=== PATIENT | male | born 1955 | race Caucasian/White ===

== ENCOUNTER 2017-12-28 18:44 | Emergency (ER) | payer OTHER ==
[2017-12-28] MEDS ORDERED: Lidocaine 1% 20 ML MDV INJECT ONE (20:01)
[2017-12-28] MEDS: Lidocaine 1% 50 ML MDV ONE ×2 (20:21)
--- NOTE | 2017-12-28 20:23 | EDM.PDOC ---
ED HPI GENERAL MEDICAL PROBLEM - General Chief Complaint: Skin Complaint Stated Complaint: INFECTED INGROWN HAIR WAISTLINE POSS CELLULITIS Time Seen by Provider: 12/28/17 18:58 Source of Information: Reports: Patient History Limitations: Reports: No Limitations - History of Present Illness INITIAL COMMENTS - FREE TEXT/NARRATIVE: This is a 62-year-old male. He is developed an ingrown hair in the right pubis area that is turning into a cellulitis and a very hard indurated area right in the middle of the ingrown hair. He believes he might have an abscess and certainly has cellulitis. He denies any fever or chills. He denies any other acute symptoms. Abdomen Pain Score (Numeric/FACES): 5 - Related Data Allergies Allergy/AdvReac Type Severity Reaction Status Date / Time ciprofloxacin Allergy Hives Verified 12/28/17 18:59 Home Meds: Home Meds Cephalexin [Keflex] 500 mg PO TID #21 capsule 12/28/17 [Rx] Lisinopril [Zestril] 20 mg PO DAILY 12/28/17 [History] Omeprazole Magnesium [Prilosec Otc] 20 mg PO DAILY 12/28/17 [History] Past Medical History Cardiovascular History: Reports: Hypertension Respiratory History: Reports: Pneumothorax, Other (See Below) Other Respiratory History: Chest tube - Past Surgical History GI Surgical History: Reports: Hernia, Abdominal, Hernia, Inguinal Social & Family History - Tobacco Use Smoking Status *Q: Never Smoker - Alcohol Use Days Per Week of Alcohol Use: 2 Number of Drinks Per Day: 2 Total Drinks Per Week: 4 - Recreational Drug Use Recreational Drug Use: No ED ROS GENERAL - Review of Systems Review Of Systems: See Below Constitutional: Denies: Fever, Chills HEENT: Reports: No Symptoms Respiratory: Reports: No Symptoms Cardiovascular: Reports: No Symptoms Endocrine: Reports: No Symptoms GI/Abdominal: Reports: No Symptoms : Reports: No Symptoms Musculoskeletal: Reports: No Symptoms Skin: Reports: Other (As per history of present illness) Neurological: Reports: No Symptoms Psychiatric: Reports: No Symptoms Hematologic/Lymphatic: Reports: No Symptoms ED EXAM, SKIN/RASH Exam: See Below Exam Limited By: No Limitations General Appearance: Alert, WD/WN, No Apparent Distress Eye Exam: Bilateral Eye: Normal Inspection Ears: Normal External Exam Nose: Normal Inspection Throat/Mouth: Normal Inspection, Normal Lips, Normal Voice, No Airway Compromise Head: Normocephalic Neck: Supple Respiratory/Chest: No Respiratory Distress Back Exam: Full Range of Motion Extremities: Normal Range of Motion Neurological: Alert, Oriented Psychiatric: Normal Affect, Normal Mood Skin: Warm, Dry, Other (In the right pubis area there is a 3 x 3 cm induration over what appears to be an ingrown hair with a cellulitis about the size of his hand over the pubic area region, I cannot feel any fluctuance when I push on the indurated area, there is no other acute findings.) ED SKIN PROCEDURES - I&D Site: Right pubis Skin Prep: Providone-Iodine (Betadine) Local Anesthesia: Lidocaine: 1% Plain Local Anesthetic Volume: 4cc Area Incised With: 11 Blade Drainage: Bloody, Moderate Amount Probed to Break Up Loculations: Yes Packed With: 1/2 in. Iodoform Sterile Dressinx4(s) Complications: No Progress/Comments: When I made the incision I used a Q-tip to probe the area and I did find a very small pocket that I completely broke up and allowed it to bleed and then I packed it with 1/2 inch iodoform gauze. The patient tolerated the procedure well. Course - Vital Signs Last Recorded V/S: Last Vital Signs Temp 97.4 F 12/28/17 18:59 Pulse 69 12/28/17 18:59 Resp 18 12/28/17 18:59 BP Pulse Ox 96 12/28/17 18:59 - Orders/Labs/Meds Orders: Active Orders 24 hr Category Date Time Status Extremity Non Vascular LTD [US] Stat Exams 12/28/17 19:12 Taken cefTRIAXone 1 GM with Lidocaine 1% 2.1 ML IM Med 12/28/17 20:30 Ordered cefTRIAXone [Rocephin] 1 gm Lidocaine 1% [Xylocaine 1%] 2.1 ml IM Q24H Meds: Medications Discontinued Medications Generic Name Dose Route Start Last Admin Trade Name Liam PRN Reason Stop Dose Admin Lidocaine HCl 20 ml 12/28/17 20:01 Xylocaine 1% INJECT 12/28/17 20:02 ONETIME ONE Lidocaine HCl Confirm 12/28/17 20:06 Xylocaine 1% Administered 12/28/17 20:07 Dose 50 ml .ROUTE .STK-MED ONE - Radiology Interpretation Free Text/Narrative:: Ultrasound identified a 1 x 0.5 cm small abscess. - Re-Assessments/Exams Free Text/Narrative Re-Assessment/Exam: 12/28/17 20:21 I spoke to the patient regarding the packing that normally it'll, push itself out but if it doesn't come out in about 3 days he needs to go ahead and remove it. I also explained that the wound will weep and to keep it covered. Departure - Departure Time of Disposition: 20:22 Disposition: Home, Self-Care 01 Condition: Good Clinical Impression: Skin abscess Qualifiers: Site of cutaneous abscess: trunk Site of cutaneous abscess of trunk: groin Qualified Code(s): L02.214 - Cutaneous abscess of groin - Discharge Information *PRESCRIPTION DRUG MONITORING PROGRAM REVIEWED*: Not Applicable *COPY OF PRESCRIPTION DRUG MONITORING REPORT IN PATIENT FRANK: Not Applicable Prescriptions: Cephalexin [Keflex] 500 mg PO TID #21 capsule Referrals: PCP,Not In Area [Primary Care Provider] - Additional Instructions: Keep a dressing over the area and realized it is going to ooze some for the next 24 hours, get the antibiotics tomorrow and start taking them tomorrow evening, if after 3 days the packing is not pushing itself out go ahead and remove the packing and keep the area clean and covered, when you finally get home if there is any issues follow up with your family doctor for recheck, if while you are here if there are any problems return to the ER - My Orders Last 24 Hours: My Active Orders 12/28/17 19:12 Extremity Non Vascular LTD [US] Stat 12/28/17 20:30 cefTRIAXone 1 GM with Lidocaine 1% 2.1 ML IM cefTRIAXone [Rocephin] 1 gm Lidocaine 1% [Xylocaine 1%] 2.1 ml IM Q24H - Assessment/Plan Last 24 Hours: My Active Orders 12/28/17 19:12 Extremity Non Vascular LTD [US] Stat 12/28/17 20:30 cefTRIAXone 1 GM with Lidocaine 1% 2.1 ML IM cefTRIAXone [Rocephin] 1 gm Lidocaine 1% [Xylocaine 1%] 2.1 ml IM Q24H
[2017-12-28] MEDS ORDERED: cefTRIAXone 1 GM, Lidocaine 1% 2.1 ML IM SCH ×2 (20:30)
--- NOTE | 2017-12-30 07:13 | US ---
Pelvic ultrasound: Multiple real-time images were obtained in the region of the right pubis. Soft tissue swelling appears to be present. Small hypoechoic area seen beneath the area of soft tissue swelling with hyperechoic rim. This finding measures about 1.0 x 0.6 x 0.6 cm. Impression: 1. Soft tissue swelling with small 1 cm hypoechoic area which is nonspecific but could represent a small abscess. Diagnostic code #3 I agree with preliminary report from [facility], finalized on 12/28/17, 10:27 PM Central Time
== END 2017-12-28 20:32 | disposition home or self-care (01) ==
LOC: JD.ED 18:44
DX: L02.214 Cutaneous abscess of groin (principal); I10 Essential (primary) hypertension; Z88.1 Allergy status to other antibiotic agents; Z79.899 Other long term (current) drug therapy
CPT/HCPCS: 10061; 76882; 96372; 99284; J0696; 10060; 99283-25